=== PATIENT | male | born 1945 | race Caucasian/White ===

== ENCOUNTER 2017-11-09 20:37 | Emergency (ER) | payer BC, OTHER ==
--- NOTE | 2017-11-09 21:15 | ED PDOC ---
Arrival/HPI - General Time Seen by Provider: 11/09/17 20:56 Historian: Patient - History of Present Illness Narrative History of Present Illness (Text): 11/09/17 21:12 Merle French is a 72 year old male who presents to the ED status post fall yesterday. Patient states he fell yesterday on to his right side and had CT scan performed at another institution. Patient states he received a call back today due to an abnormal finding and was advised to come to the ER for further evaluation. Patient reports pain over the right ribs and denies any neck pain, abdominal pain, chest pain, nausea, vomiting, diarrhea, or any other complaints. Symptom Onset: Gradual Symptom Course: Unchanged Activities at Onset: Light Context: Home Past Medical History - Provider Review Nursing Documentation Reviewed: Yes Family/Social History - Physician Review Nursing Documentation Reviewed: Yes Family/Social History: Unknown Family HX Allergies/Home Meds Allergies/Adverse Reactions: Allergies No Known Allergies Allergy (Verified 11/09/17 20:59) Home Medications: Home Meds Medication Instructions Recorded Confirmed Aspirin [Aspirin Chewable] 81 mg PO DAILY 11/09/17 11/09/17 Atorvastatin [Lipitor] 40 mg PO DAILY 11/09/17 11/09/17 Clopidogrel [Plavix] 75 mg PO DAILY 11/09/17 11/09/17 Donepezil HCl [Aricept] 5 mg PO DAILY 11/09/17 11/09/17 Gabapentin [Neurontin] 300 mg PO BID 11/09/17 11/09/17 Losartan/Hydrochlorothiazide 1 tab PO DAILY 11/09/17 11/09/17 [Losartan-Hctz 100-25 mg Tab] Metoprolol Tartrate [Lopressor] 25 mg PO DAILY 11/09/17 11/09/17 Ranolazine [Ranexa] 1,000 mg PO BID 11/09/17 11/09/17 Sitagliptin Phos/Metformin HCl 1 tab PO BID 11/09/17 11/09/17 [Janumet Xr 50-500 mg Tablet] Review of Systems - Physician Review All systems were reviewed & negative as marked: Yes - Review of Systems Constitutional: Normal. absent: Fevers Eyes: Normal ENT: Normal Respiratory: Normal. absent: SOB Cardiovascular: Normal. absent: Chest Pain Gastrointestinal: Normal. absent: Abdominal Pain, Diarrhea, Nausea, Vomiting Genitourinary Male: Normal. absent: Dysuria, Frequency, Hematuria, Urinary Output Changes Musculoskeletal: Other (+right rib pain). absent: Back Pain, Neck Pain Skin: Normal. absent: Rash Neurological: Normal. absent: Headache, Dizziness Endocrine: Normal Hemo/Lymphatic: Normal Psychiatric: Normal Physical Exam Vital Signs Reviewed: Yes Vital Signs Temp Pulse Resp BP Pulse Ox 11/09/17 23:17 73 18 128/72 100 11/09/17 21:05 97.9 F 70 18 134/69 99 Temperature: Afebrile Blood Pressure: Normal Pulse: Regular Respiratory Rate: Normal Appearance: Positive for: Well-Appearing, Non-Toxic, Comfortable Pain Distress: None Mental Status: Positive for: Alert and Oriented X 3 - Systems Exam Head: Present: Atraumatic, Normocephalic Pupils: Present: PERRL Extroacular Muscles: Present: EOMI Conjunctiva: Present: Normal Mouth: Present: Moist Mucous Membranes Neck: Present: Normal Range of Motion Respiratory/Chest: Present: Clear to Auscultation, Good Air Exchange, Tender to Palpation (Tenderness over right ribs). No: Respiratory Distress, Accessory Muscle Use Cardiovascular: Present: Regular Rate and Rhythm, Normal S1, S2. No: Murmurs Abdomen: No: Tenderness, Distention, Peritoneal Signs Back: Present: Normal Inspection Upper Extremity: Present: Normal ROM, NORMAL PULSES, Neurovascularly Intact, Capillary Refill < 2s, Other (Abrasion to right elbow). No: Cyanosis, Edema, Tenderness, Swelling, Erythema, Temperature Abnormalties, Deformity Lower Extremity: Present: Normal Inspection. No: Edema Neurological: Present: GCS=15, CN II-XII Intact, Speech Normal Skin: Present: Warm, Dry, Normal Color. No: Rashes Psychiatric: Present: Alert, Oriented x 3, Normal Insight, Normal Concentration Medical Decision Making ED Course and Treatment: 11/09/17 21:12 Impression: 72 year old male sent due to abnormal CT scan finding s/p fall yesterday and right rib pain. Plan: -- CT Head w/o contrast -- CT Chest w/o contrast -- Reassess and disposition 11/09/17 22:50 Reviewed radiology, CT Head shows: Brain: Periventricular hypoattenuation is likely related to small vessel disease. No hemorrhage. Ventricles: Unremarkable. No ventriculomegaly. Bones/joints: Unremarkable. No acute fracture. Soft tissues: Unremarkable. Sinuses: Unremarkable as visualized. No acute sinusitis. Mastoid air cells: Unremarkable as visualized. No mastoid effusion. IMPRESSION: No acute findings. CT Chest shows: Limitations: Evaluation is limited due to lack of IV contrast. Lungs: Minimal atelectatic changes. No consolidation. Pleural space: Unremarkable. No pneumothorax. No significant effusion. Heart: Marked coronary artery calcification. No significant pericardial effusion. Thyroid: Left lobe of the thyroid gland is enlarged. Bones/joints: Unremarkable. No acute fracture. No dislocation. Soft tissues: Unremarkable. Vasculature: Unremarkable. No thoracic aortic aneurysm. Lymph nodes: Unremarkable. No enlarged lymph nodes. IMPRESSION: No acute findings. 11/09/17 23:15 On re-evaluation, patient feels better and is in no acute distress. I have discussed the results and plan with the patient, who expresses understanding. Patient in agreement with plan to be discharged home. Patient is stable for discharge. Patient was instructed to follow up with physician or return if symptoms worsen or new concerning symptoms arise. - RAD Interpretation Radiology Orders: 11/09/17 21:18 HEAD W/O CONTRAST [CT] Stat 11/09/17 21:19 CHEST W/O CONTRAST [CT] Stat Emergency Specialist: Radiologist - Scribe Statement The provider has reviewed the documentation as recorded by the Kenneth Weiss Provider Scribe Attestation: All medical record entries made by the Scribe were at my direction and personally dictated by me. I have reviewed the chart and agree that the record accurately reflects my personal performance of the history, physical exam, medical decision making, and the department course for this patient. I have also personally directed, reviewed, and agree with the discharge instructions and disposition. Disposition/Present on Arrival - Present on Arrival Any Indicators Present on Arrival: No - Disposition Have Diagnosis and Disposition been Completed?: Yes Diagnosis: Head injury, Chest wall contusion Disposition: HOME/ ROUTINE Disposition Time: 23:15 Condition: GOOD Discharge Instructions (ExitCare): Closed Head Injury (DC), Contusion (DC) Forms: [facility] ([place]), WORK NOTE
[2017-11-09 21:25] VITALS: RESP 18; TEMP 97.9; BMI 37.1
[2017-11-09 23:17] VITALS: BP 128/72; PULSE 73; O2SAT 100
[2017-11-09] MEDS ORDERED: Etomidate 20 mg/10ml Inj IV ONE (23:28)
[2017-11-09] MEDS ORDERED: Succinylcholine 200 mg/10 ml Inj IV ONE (23:28)
--- NOTE | 2017-11-10 09:17 | CARD ---
APPROVED REPORT EKG Measurement Heart [id number] <Conclusion> Normal sinus rhythm Nonspecific T wave abnormality Abnormal ECG
--- NOTE | 2017-11-10 09:48 | CT ---
PROCEDURE: CT HEAD WITHOUT CONTRAST. HISTORY: fall COMPARISON: None available. TECHNIQUE: Axial computed tomography images were obtained through the head/brain without intravenous contrast. Radiation dose: Total exam DLP = mGy-cm. This CT exam was performed using one or more of the following dose reduction techniques: Automated exposure control, adjustment of the mA and/or kV according to patient size, and/or use of iterative reconstruction technique. FINDINGS: HEMORRHAGE: No intracranial hemorrhage. BRAIN: No mass effect or edema. 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 VENTRICLES: Unremarkable. No hydrocephalus. CALVARIUM: Unremarkable. PARANASAL SINUSES: Unremarkable as visualized. No significant inflammatory changes. MASTOID AIR CELLS: Unremarkable as visualized. No inflammatory changes. OTHER FINDINGS: None. IMPRESSION: No acute hemorrhage.
--- NOTE | 2017-11-10 11:41 | CT ---
PROCEDURE: CT Chest without contrast HISTORY: fall COMPARISON: None. TECHNIQUE: Contiguous axial images were obtained through the chest without intravenous contrast enhancement. Sagittal and coronal reconstructions were performed. Radiation dose (DLP): mGy-cm. This CT exam was performed using one or more of the following dose reduction techniques: Automated exposure control, adjustment of the mA and/or kV according to patient size, and/or use of iterative reconstruction technique. FINDINGS: LUNGS: 4 millimeter calcified granuloma in the right upper lobe. MEDIASTINUM: Unremarkable thoracic aorta. No aneurysm. Normal sized heart. Main pulmonary artery unremarkable. No vascular congestion. No lymphadenopathy. PLEURA: No pleural fluid. No pneumothorax. BONES: No fracture. No destructive lesion. UPPER ABDOMEN: Cholecystectomy. OTHER FINDINGS: Multiple bilateral calcified nodules in the thyroid gland measuring up to 2.2 centimeters on the left. IMPRESSION: Multiple bilateral calcified nodules in the thyroid gland measuring up to 2.2 centimeters on the left. Correlate with thyroid ultrasound as clinically indicated
== END 2017-11-09 23:52 | disposition home or self-care (01) ==
LOC: ED 20:37
DX: S09.90XA Unspecified injury of head, initial encounter (principal); S20.219A Contusion of unspecified front wall of thorax, initial encounter; W19.XXXA Unspecified fall, initial encounter; Y92.89 Other specified places as the place of occurrence of the external cause